=== PATIENT | female | born 1990 | race Caucasian/White ===

== ENCOUNTER 2022-10-21 11:10 | Emergency (ER) | payer MEDICARE, SELFPAY ==
[2022-10-21 11:13] VITALS: BP 143/96; PULSE 84; RESP 20; TEMP 36.8; O2SAT 96; BMI 41.6
--- NOTE | 2022-10-21 11:27 | ED.RECABL1 ---
HPI - Recheck/Abnormal Lab/Rx General Chief Complaint: Recheck/Abnormal Lab/Rx Stated Complaint: OUT OF GABAPENTIN-SENT BY DR COVARRUBIAS Time Seen by Provider: 10/21/22 11:27 Source: family Mode of arrival: walk-in History of Present Illness HPI narrative: patient's here requesting a refill for her gabapentin. She does have a primary care doctor but they ran out of her gabapentin today. She did not take her morning dose. She takes 600 mg, one tablet three times a day and she's been on that for many many years for seizure disorder. When she was nine months old, her mother says she had a stroke and she's been on epileptic medications for a long time. She is not out of her other meds. She's not had a seizure for a very long time. Otherwise she has no complaints and feels well so chair exclusively for medication refill. Related Data Home Medications Medication Instructions Recorded Confirmed carbamazepine 100 mg chewable 300 mg PO Q12H 10/21/22 10/21/22 tablet risperidone 3 mg tablet 3 mg PO BID 10/21/22 10/21/22 rivaroxaban 20 mg tablet (Xarelto) 20 mg PO Q24H 10/21/22 10/21/22 Allergies Allergy/AdvReac Type Severity Reaction Status Date / Time No Known Drug Allergies Allergy Verified 10/21/22 11:16 [facility] Social History Smoking status: Current every day smoker Exam Narrative Exam Narrative: awake alert baseline status quo vital signs as noted. She is in no distress she is pleasant R mother's primary historian. Skin is warm and dry mucous members are moist and pink she does not appear ill. Her not feel any other laboratory testing is necessary at this time. Constitutional Vital Signs, click to edit/add: Last Vital Signs Temp 98.2 F 10/21/22 11:13 Pulse 84 10/21/22 11:13 Resp 20 10/21/22 11:13 BP 143/96 H 10/21/22 11:13 Pulse Ox 96 10/21/22 11:13 Course Vital Signs Vital signs: Vital Signs Temperature 98.2 F 10/21/22 11:13 Pulse Rate 84 10/21/22 11:13 Respiratory Rate 20 10/21/22 11:13 Blood Pressure 143/96 H 10/21/22 11:13 Pulse Oximetry 96 10/21/22 11:13 Temperature 98.2 F 10/21/22 11:13 Pulse Rate 84 10/21/22 11:13 Respiratory Rate 20 10/21/22 11:13 Blood Pressure 143/96 H 10/21/22 11:13 Pulse Oximetry 96 10/21/22 11:13 MDM - Recheck/Abnormal Lab/Rx MDM Narrative Medical decision making narrative: patient has a primary care doctor but they ran out of medication on a weekend. I'm glad to refill this for them but they should follow-up with her ongoing practitioner Discharge Plan Discharge Chief Complaint: Recheck/Abnormal Lab/Rx Clinical Impression: Encounter for medication refill Patient Disposition: Home, Self-Care Time of Disposition Decision: 11:32 Prescriptions / Home Meds: No Action carbamazepine 100 mg tablet,chewable 300 mg PO Q12H risperidone 3 mg tablet 3 mg PO BID Xarelto 20 mg tablet 20 mg PO Q24H Stand Alone Forms: Portal Instructions
[2022-10-21] MEDS: GABAPENTIN 300 MG CAPSULE 600 MG PO (11:45)
== END 2022-10-21 11:46 | disposition home or self-care (01) ==
LOC: ER 11:44
PROVIDERS: Emergency Provider Emergency Medicine Emergency Medical Services; PCP Family Medicine
DX: Z76.0 Encounter for issue of repeat prescription (principal); G40.909 Epilepsy, unspecified, not intractable, without status epilepticus; F17.210 Nicotine dependence, cigarettes, uncomplicated; Z79.899 Other long term (current) drug therapy
CPT/HCPCS: 99283

== ENCOUNTER 2023-07-21 15:15 | Emergency (ER) | payer MEDICARE, MEDICAID, SELFPAY ==
[2023-07-21 15:21] VITALS: BP 103/66; PULSE 80; TEMP 36.8; O2SAT 100; BMI 54.9
--- NOTE | 2023-07-21 15:28 | US_ITS ---
The [address] [address] Patient Name: SUYAPA HENDRICKS MRN: [id number] date: 1990 Sex: F Assigned Patient Location: ER Current Patient Location: Accession/Order Number: [id number] Exam Date: 07/21/2023 15:34 Report Date: 07/21/2023 17:56 At the request of: KE CARABALLO Procedure: US venous doppler LE LT EXAM: US venous doppler LE LT HISTORY: Left calf swelling and redness COMPARISON: None. TECHNIQUE: Evaluation of the deep veins of the left lower extremity was performed utilizing B-mode, color flow and spectral analysis. FINDINGS: The visualized vessels comprising the deep venous systems from the common femoral vein through the calf veins demonstrate appropriate compressibility, spontaneous color Doppler flow, and augmentation of flow on spectral Doppler with distal compression. Additional findings: Compressible varicosis of the thigh. Lower extremity soft tissue swelling. US/US venous doppler LE LT IMPRESSION: No sonographic evidence of deep venous thrombosis of the left lower extremity. Compressible varicosis of the thigh. Lower extremity soft tissue swelling. Electronically authenticated by: MANUEL LERNER Date: 07/21/2023 17:56
--- NOTE | 2023-07-21 15:31 | ED.EXTPRO1 ---
HPI - Extremity Problem General Chief complaint: Extremity Problem, Nontraumatic Stated complaint: leg edema Time Seen by Provider: 07/21/23 15:21 Source: family and caregiver Mode of arrival: walk-in Limitations: other Limitations comment: DEVELOPMENTALY DELAYED History of Present Illness HPI Narrative: Patient is a 33-year-old female with a history of developmental delay who presents to the emergency department for swollen area to the anterior left alamo. Caregiver is concerned because she has a history of DVT and takes Xarelto daily. They have not skipped any doses of Xarelto. Patient did not have any falls or injuries. She has no posterior calf tenderness or other associated focal medical complaints. Related Data Home Medications ?Medication ?Instructions ?Recorded ?Confirmed carbamazepine 100 mg chewable 300 mg PO Q12H 10/21/22 10/21/22 tablet risperidone 3 mg tablet 3 mg PO BID 10/21/22 10/21/22 rivaroxaban 20 mg tablet (Xarelto) 20 mg PO Q24H 10/21/22 10/21/22 Allergies Allergy/AdvReac Type Severity Reaction Status Date / Time No Known Drug Allergies Allergy Verified 07/21/23 15:21 Review of Systems ROS Constitutional Denies: fever or chills Ears, nose, mouth, and throat Denies: throat pain Respiratory Denies: shortness of breath Gastrointestinal Denies: nausea or vomiting Integumentary/Breast Reports: skin pain; Denies: rash or redness Hematologic/Lymphatic Reports: easy bruising and easy bleeding Allergic/Immunologic Denies: hives PFSH PFSH Social History Smoking status: Current every day smoker Exam Narrative Exam Narrative: Gen.: Awake, alert, in no distress Head: Normocephalic, atraumatic ENT: Moist mucous membranes Respiratory: No respiratory distress Extremities: Moves extremities equally, Legs are obese, symmetric, raised firm area to the left anterior tibia with no erythema or fluctuance. No induration, consistent with possible hematoma. Calves are soft and nontender bilaterally. No open wounds, redness or red streaking noted of the legs. Psych: Normal mood and affect Neuro: No focal neuro deficit Skin: Warm, dry, intact Constitutional Vital Signs, click to edit/add: Last Vital Signs Temp 98.2 F 06/15/24 15:21 Pulse 80 07/21/23 15:21 Resp 18 07/21/23 15:21 BP 103/66 07/21/23 15:21 Pulse Ox 100 07/21/23 15:21 O2 Del Method Room Air 07/21/23 15:21 Course Vital Signs Vital signs: Vital Signs Temperature 98.2 F 07/21/23 15:21 Pulse Rate 80 07/21/23 15:21 Respiratory Rate 18 07/21/23 15:21 Blood Pressure 103/66 07/21/23 15:21 Pulse Oximetry 100 07/21/23 15:21 Oxygen Delivery Method Room Air 07/21/23 15:21 Temperature 98.2 F 07/21/23 15:21 Pulse Rate 80 07/21/23 15:21 Respiratory Rate 18 07/21/23 15:21 Blood Pressure 103/66 07/21/23 15:21 Pulse Oximetry 100 07/21/23 15:21 Oxygen Delivery Method Room Air 07/21/23 15:21 MDM - Extremity (Nontraumatic) MDM Narrative Medical decision making narrative: Patient's exam is benign, no evidence of cellulitis, calves are soft and nontender with stable vital signs. Ultrasound with no evidence of DVT and the patient is discharged home to apply ice to the swollen area, follow-up with PCP and return to the ER if symptoms change or worsen SUPERVISED APC VISIT, PHYSICIAN ATTESTATION: Based on the medical record the care appears appropriate. ? Medical Records Attestation: I reviewed the patient's medical records. Imaging Data Venous US: Attestation: I have reviewed the pertinent imaging results. Radiologist's impression: ITS Impressions Venous Doppler Study 07/21/23 15:28 IMPRESSION: No sonographic evidence of deep venous thrombosis of the left lower extremity. Compressible varicosis of the thigh. Lower extremity soft tissue swelling. Electronically authenticated by: MANUEL LERNER Date: 07/21/2023 17:56 Discharge Plan Discharge Stand Alone Forms: Portal Instructions Chief Complaint: Extremity Problem, Nontraumatic Clinical Impression: Left leg swelling Patient Disposition: Home, Self-Care Time of Disposition Decision: 17:59 Condition: Good Prescriptions / Home Meds: No Action carbamazepine 100 mg tablet,chewable 300 mg PO Q12H risperidone 3 mg tablet 3 mg PO BID Xarelto 20 mg tablet 20 mg PO Q24H Print Language: Andorran Instructions: Musculoskeletal Pain (ED) Referrals: JAXON COVARRUBISA [Primary Care Provider] - 1 week
[2023-07-21 18:04] VITALS: PULSE 68; O2SAT 98
== END 2023-07-21 18:05 | disposition home or self-care (01) ==
PROVIDERS: Emergency Provider Student in an Organized Health Care Education/Training Program; PCP Family Medicine
DX: M79.89 Other specified soft tissue disorders (principal); Z86.718 Personal history of other venous thrombosis and embolism; Z79.01 Long term (current) use of anticoagulants; R62.50 Unspecified lack of expected normal physiological development in childhood; F17.200 Nicotine dependence, unspecified, uncomplicated
CPT/HCPCS: 93971; 99284